=== PATIENT | female | born 2005 | race Two or more races ===

== ENCOUNTER 2024-06-02 14:22 | Emergency (ER) | payer OTHER ==
[2024-06-02 15:59] LABS: BASOPHILS PERCENT AUTO 0.1 % (0.0-1.0); EOSINOPHILS ABSOLUTE AUTO 0.1 K/mm3 (0.0-0.4); EOSINOPHILS PERCENT AUTO 0.4 % (0.0-6.0); HEMATOCRIT 35.2 % (37.0-47.0); HEMOGLOBIN 12.3 gm/dl (12.0-16.0); IMMATURE GRAN ABSOLUTE AUTO 0.06 K/mm3 (0.00-0.05); IMMATURE GRAN PERCENT AUTO 0.5 % (0.0-0.4); LYMPHOCYTES ABSOLUTE AUTO 2.7 K/mm3 (1.0-4.8); LYMPHOCYTES PERCENT AUTO 22.9 % (24.0-44.0); MEAN CORPUSCULAR HEMOGLOBIN 31.9 pg (28.0-32.0); MEAN CORPUSCULAR HGB CONC 34.9 g/dl (32.0-36.0); MEAN CORPUSCULAR VOLUME 91.2 fl (83.0-99.0); MEAN PLATELET VOLUME 9.7 fl (9.4-12.3); MONOCYTES ABSOLUTE AUTO 0.6 K/mm3 (0.0-0.8); MONOCYTES PERCENT AUTO 4.9 % (0.0-8.0); NEUTROPHILS ABSOLUTE AUTO 8.5 K/mm3 (1.8-7.7); NEUTROPHILS PERCENT AUTO 71.2 % (41.0-71.0); PLATELET COUNT,PLT 282 K/mm3 (150-400); RED BLOOD CELL COUNT 3.86 M/mm3 (4.10-5.30); WHITE BLOOD CELL COUNT,WBC 11.96 K/mm3 (3.9-11.3)
[2024-06-02 16:06] LABS: APPEARANCE,URINE SLT CLOUDY (Clear); BILIRUBIN,URINE NEGATIVE (Negative); COLOR,URINE YELLOW (Yellow); GLUCOSE,URINE NEGATIVE (Negative); KETONES,URINE NEGATIVE (Negative); LEUKOCYTE ESTERASE,URINE TRACE (Negative); NITRITE,URINE NEGATIVE (Negative); OCCULT BLOOD,URINE NEGATIVE (Negative); PH,URINE 6.5 (5.0-8.0); PROTEIN,URINE NEGATIVE (Negative)
[2024-06-02 16:14] LABS: BACTERIA,URINE MANY /hpf (FEW); MUCUS,URINE MODERATE /hpf (FEW); RBC,URINE 0-5 /hpf (0-5)
[2024-06-02 16:40] LABS: A/G RATIO 0.7 (1-2); ALBUMIN 2.9 g/dl (3.4-5.0); ANION GAP 10.8 (5-15); BILIRUBIN TOTAL 0.3 mg/dL (0.2-1.0); CREATININE 0.5 mg/dL (0.55-1.02); EST CRCL DRUG DOSING (CG) 174.53 mL/min; POTASSIUM,K 3.8 mEq/L (3.5-5.1); PROTEIN TOTAL,TP 7.2 g/dl (6.4-8.2)
[2024-06-02 17:46] LABS: C. TRACHOMATIS BY PCR NOT DETECTED; N. GONORRHOEAE BY PCR NOT DETECTED
== END 2024-06-02 19:40 | disposition hospice, home (50) ==
LOC: JD.ED 14:22
DX: O99.891 Other specified diseases and conditions complicating pregnancy (principal); O23.592 Infection of other part of genital tract in pregnancy, second trimester; R10.32 Left lower quadrant pain; R82.90 Unspecified abnormal findings in urine; Z3A.18 18 weeks gestation of pregnancy
CPT/HCPCS: 0352U; 36415; 76815; 80053; 81001; 83690; 84702; 85025; 86900; 86901; 87086; 87491; 87591; 99284

== ENCOUNTER 2024-10-22 06:49 | Inpatient (IN) | payer OTHER ==
[2024-10-22] MEDS ORDERED: Acetaminophen 325 MG Tab PO PRN (08:26)
[2024-10-22] MEDS ORDERED: Lidocaine 1% 50 ML MDV INJECT PRN (08:26)
[2024-10-22] MEDS ORDERED: Ondansetron 4 MG/2 ML SDV IVPUSH PRN (08:26)
[2024-10-22] MEDS ORDERED: Sodium Chloride 0.9% 10 ML Syringe FLUSH PRN (08:26)
[2024-10-22] MEDS ORDERED: Oxytocin/0.9 % Sodium Chloride 30 UNIT/500 ML BAG IV SCH (08:30)
[2024-10-22 08:56] LABS: BASOPHILS PERCENT AUTO 0.1 % (0.0-1.0); EOSINOPHILS PERCENT AUTO 0.2 % (0.0-6.0); HEMATOCRIT 36.8 % (37.0-47.0); HEMOGLOBIN 12.5 gm/dl (12.0-16.0); IMMATURE GRAN ABSOLUTE AUTO 0.03 K/mm3 (0.00-0.05); IMMATURE GRAN PERCENT AUTO 0.3 % (0.0-0.4); LYMPHOCYTES ABSOLUTE AUTO 2.3 K/mm3 (1.0-4.8); LYMPHOCYTES PERCENT AUTO 19.2 % (24.0-44.0); MEAN CORPUSCULAR HEMOGLOBIN 29.2 pg (28.0-32.0); MEAN PLATELET VOLUME 10.5 fl (9.4-12.3); MONOCYTES ABSOLUTE AUTO 0.6 K/mm3 (0.0-0.8); MONOCYTES PERCENT AUTO 5.3 % (0.0-8.0); NEUTROPHILS ABSOLUTE AUTO 8.9 K/mm3 (1.8-7.7); NEUTROPHILS PERCENT AUTO 74.9 % (41.0-71.0); PLATELET COUNT,PLT 298 K/mm3 (150-400); RED BLOOD CELL COUNT 4.28 M/mm3 (4.10-5.30)
[2024-10-22] MEDS: Nalbuphine 10 MG/1 ML Vial IVPUSH PRN (09:30)
[2024-10-22] MEDS: Lactated Ringers 1,000 ML IV SCH (09:54)
[2024-10-22] MEDS: Sodium Chloride 0.9% 10 ML Syringe FLUSH SCH (10:03)
[2024-10-22] MEDS: Oxytocin/0.9 % Sodium Chloride 30 UNIT/500 ML BAG IV SCH (10:56)
[2024-10-22] MEDS ORDERED: Simethicone 80 MG Tab.Chew PO PRN (12:06)
[2024-10-22] MEDS ORDERED: Magnesium Hydroxide 400 MG/5 ML Susp 30 ML Cup PO PRN (12:06)
[2024-10-22] MEDS ORDERED: Docusate Sodium 100 MG Cap PO PRN (12:06)
[2024-10-22] MEDS ORDERED: Hydrocortisone Acetate 25 MG Supp RECTAL PRN (12:06)
[2024-10-22] MEDS: Ibuprofen 600 MG Tab PO SCH (12:20)
[2024-10-22] MEDS: Benzocaine/Menthol 20%-0.5% Spray 78 GM Cannister TOP PRN (12:21)
[2024-10-22] MEDS: Witch Hazel Medicated Pads 40/Jar TOP PRN (12:21)
[2024-10-22] MEDS: Acetaminophen 325 MG Tab PO PRN (19:59)
[2024-10-23] MEDS: Prenatal Multivitamin with Calcium/Folic Acid/Iron Tab PO SCH (15:05)
== END 2024-10-23 14:30 | disposition home or self-care (01) | DRG 807 ==
LOC: UNDOADMOB 06:49 → JD.OB 06:49 → INTOOBSV 10:54 → JD.OB 10:54 → OBSVTOIN 10:54 → JD.OB 11:16 → OBSVTOIN 11:16
PROVIDERS: ADMIT Obstetrics & Gynecology; ATTEND Obstetrics & Gynecology
PROC: 10E0XZZ Delivery of Products of Conception, External Approach (ICD-10-PCS; principal; 2024-10-22)
DX: O26.893 Other specified pregnancy related conditions, third trimester (principal); Z37.0 Single live birth; Z67.91 Unspecified blood type, Rh negative; Z3A.38 38 weeks gestation of pregnancy
CPT/HCPCS: 36415; 59025; 59409; 85025; A9270-GY; J2300; J7120; J7999

== ENCOUNTER 2025-05-19 23:57 | Emergency (ER) | payer SELFPAY ==
[2025-05-20] MEDS ORDERED: Sodium Chloride 0.9% 10 ML Syringe FLUSH PRN (00:11)
[2025-05-20 00:21] LABS: BASOPHILS ABSOLUTE AUTO 0.0 K/mm3 (0.0-0.2); BASOPHILS PERCENT AUTO 0.3 % (0.0-1.0); EOSINOPHILS ABSOLUTE AUTO 0.1 K/mm3 (0.0-0.4); EOSINOPHILS PERCENT AUTO 0.8 % (0.0-6.0); IMMATURE GRAN ABSOLUTE AUTO 0.03 K/mm3 (0.00-0.05); IMMATURE GRAN PERCENT AUTO 0.2 % (0.0-0.4); LYMPHOCYTES ABSOLUTE AUTO 5.4 K/mm3 (1.0-4.8); LYMPHOCYTES PERCENT AUTO 42.7 % (24.0-44.0); MEAN PLATELET VOLUME 9.5 fl (9.4-12.3); MONOCYTES ABSOLUTE AUTO 1.0 K/mm3 (0.0-0.8); MONOCYTES PERCENT AUTO 7.9 % (0.0-8.0); NEUTROPHILS ABSOLUTE AUTO 6.1 K/mm3 (1.8-7.7); NEUTROPHILS PERCENT AUTO 48.1 % (41.0-71.0); NRBC ABSOLUTE 0.00 (0.00-0.02); NRBC PERCENT 0.0 % (0.0-0.2); PLATELET COUNT,PLT 352 K/mm3 (150-400); RED BLOOD CELL COUNT 4.82 M/mm3 (4.10-5.30); WHITE BLOOD CELL COUNT,WBC 12.72 K/mm3 (3.9-11.3)
[2025-05-20] MEDS ORDERED: Naloxone 0.4 MG/ML SDV IVPUSH PRN (00:23)
[2025-05-20 00:45] LABS: APPEARANCE,URINE SLT CLOUDY (Clear); GLUCOSE,URINE NEGATIVE (Negative); OCCULT BLOOD,URINE NEGATIVE (Negative)
[2025-05-20 00:48] LABS: A/G RATIO 0.9 (1-2); ALANINE AMINOTRANSFERASE,ALT 55 U/L (14-59); ASPARTATE AMNIOTRANSFERASE,AST 41 U/L (15-37); BILIRUBIN TOTAL 0.9 mg/dL (0.2-1.0); BLOOD UREA NITROGEN,BUN 17 mg/dL (7-18); CARBON DIOXIDE,CO2 23 mEq/L (21-32); CHLORIDE,CL 103 mEq/L (98-107); CREATININE 0.8 mg/dL (0.55-1.02); EST CRCL DRUG DOSING (CG) 96.06 mL/min; ESTIMATED GFR 107 mL/min (>60); GLUCOSE RANDOM 92 mg/dL (70-99); POTASSIUM,K 3.2 mEq/L (3.5-5.1); PROTEIN TOTAL,TP 8.5 g/dl (6.4-8.2); SODIUM,NA 138 mEq/L (136-145)
[2025-05-20 00:49] LABS: TROPONIN I HIGH SENSITIVITY < 4 pg/mL (<=51)
[2025-05-20 00:51] LABS: LACTIC ACID 0.9 mmol/L (0.4-2.0)
[2025-05-20 00:52] LABS: BUPRENORPHINE SCREEN,URINE NEGATIVE (CUTOFF=10); METHADONE SCREEN, URINE NEGATIVE (CUTOFF=200); METHAMPHETAMINES SCREEN, URINE NEGATIVE (CUTOFF=500); OXYCODONE SCREEN,URINE NEGATIVE (CUT0FF=100); THC SCREEN,URINE 20 NG/ML NEGATIVE (CUTOFF=50)
[2025-05-20 00:54] LABS: AMPHETAMINES SCREEN, URINE NEGATIVE (CUTOFF=500)
[2025-05-20] MEDS: Iopamidol 612 MG/ML 100 ML Bottle IVPUSH ONE (01:59)
[2025-05-20] MEDS: Potassium Bicarbonate/Cit Ac 20 MEQ Effervescent Tab PO ONE (03:48)
== END 2025-05-20 04:28 | disposition home or self-care (01) ==
LOC: JD.ED 23:57
DX: K80.70 Calculus of gallbladder and bile duct without cholecystitis without obstruction (principal); Z79.899 Other long term (current) drug therapy
CPT/HCPCS: 36415; 71045; 74177; 76705; 80053; 80306; 81003; 83605; 83690; 84484; 84703; 85025; 85379; 93005; 96361; 96374; 99284; A9270; J2270; J7030; Q9967; 93010

== ENCOUNTER 2025-07-26 09:28 | Day surgery (SDC) | payer SELFPAY ==
[~2025-07-26 09:28] MED LIST: Lactated Ringers 1,000 ML IV SCH; Midazolam 1 MG/ML 2 ML SDV ONE; Ondansetron 4 MG/2 ML SDV ONE; Sodium Chloride 0.9% 10 ML Syringe FLUSH PRN; Sodium Chloride 0.9% 10 ML Syringe FLUSH SCH; dexmedeTOMIDine HCl 200 MCG/2 ML SDV ONE; fentaNYL 250 MCG/5 ML SDV ONE
[2025-07-26] MEDS ORDERED: propofoL 1,000 MG/100 ML 100 ML ONE (09:39)
[2025-07-26] MEDS ORDERED: Ondansetron 4 MG/2 ML SDV IVPUSH PRN ×2 (09:52→12:11)
[2025-07-26] MEDS ORDERED: fentaNYL 100 MCG/2 ML SDV IVPUSH PRN ×2 (09:52→12:11)
[2025-07-26] MEDS: Lactated Ringers 1,000 ML IV SCH (09:55)
[2025-07-26] MEDS ORDERED: Dexamethasone 4 MG/ML 5 ML MDV ONE (10:12)
[2025-07-26] MEDS ORDERED: Esmolol 100 MG/10 ML SDV ONE (10:36)
[2025-07-26] MEDS ORDERED: Ketorolac 30 MG/ML SDV ONE (10:45)
== END 2025-07-26 17:00 | disposition home or self-care (01) ==
LOC: JD.SDS 09:28
PROVIDERS: ATTEND Surgery
DX: K80.10 Calculus of gallbladder with chronic cholecystitis without obstruction (principal)
CPT/HCPCS: 47562; 81025; A9270; J0665; J0690; J1100; J1805; J1885; J2003; J2250; J2405; J2704; J3010; J7120; 00790; J1171; J3490